=== PATIENT | female | born 1970 | race Native Hawaiian/Other Pacific Islander ===

== ENCOUNTER 2018-11-04 08:52 | Outpatient (CLI) | payer OTHER | END 2018-11-04 23:19 | disposition home or self-care (01) | LOC: RAD 08:52 | DX: M85.89 Other specified disorders of bone density and structure, multiple sites (principal) ==

== ENCOUNTER 2020-06-06 07:47 | Outpatient (CLI) | payer OTHER | END 2020-06-06 19:58 | disposition home or self-care (01) | LOC: MRI 07:47 | PROVIDERS: ATTEND Nurse Practitioner Family | DX: M47.812 Spondylosis without myelopathy or radiculopathy, cervical region (principal); M47.814 Spondylosis without myelopathy or radiculopathy, thoracic region; M47.816 Spondylosis without myelopathy or radiculopathy, lumbar region; M85.89 Other specified disorders of bone density and structure, multiple sites; R93.7 Abnormal findings on diagnostic imaging of other parts of musculoskeletal system | CPT/HCPCS: 36415; 82565; 84520; A9576 ==

== ENCOUNTER 2021-10-21 10:38 | Outpatient (CLI) | payer OTHER | END 2021-10-21 18:50 | disposition home or self-care (01) | LOC: RAD 10:38 | PROVIDERS: ATTEND Registered Nurse | DX: M79.671 Pain in right foot (principal); M79.672 Pain in left foot ==